=== PATIENT | female | born 1985 | race Caucasian/White ===

== ENCOUNTER 2016-04-16 14:40 | Emergency (ER) | payer OTHER ==
[2016-04-16 14:50] VITALS: BP 155/83; PULSE 94; RESP 20; TEMP 97.5
[2016-04-16] MEDS ORDERED: SODIUM CHLORIDE 0.9% 1,000 ML IV STA (16:09)
[2016-04-16] MEDS ORDERED: RX INFO: IV CONTRAST WAS GIVEN 1 EACH MISC MISCELLANE PRN (16:10)
--- NOTE | 2016-04-16 17:19 | ED ---
General Adult HPI - General Chief complaint: Eye Problems Stated complaint: Vision Problems Time Seen by Provider: 04/16/16 15:35 Source: patient, RN notes reviewed, old records reviewed Mode of arrival: ambulatory Limitations: no limitations - History of Present Illness Initial comments: This is a 30-year-old female here for evaluation. This patient presents for evaluation of blurry vision. Her vision seems isolated the left eye. Patient has decreased blurry vision if she does have just her right eye, vision is normal. Both eyes mild blurry vision left eye she does have blurry vision. Patient also complaining of headache. Medical history significant for polycystic ovarian syndrome, otherwise medical history is been well, no history of diabetes. No recent trauma - Related Data Home Medications Medication Instructions Recorded Confirmed Sertraline HCl [Zoloft] 150 mg PO HS 06/24/13 04/16/16 buPROPion XL [Wellbutrin XL] 300 mg PO W/LUNCH 04/27/15 04/16/16 Calcium Polycarbophil [Fibercon] 625 mg PO Q7D PRN 04/16/16 04/16/16 Ibuprofen [Motrin] 200 - 400 mg PO Q6HR PRN 04/16/16 04/16/16 Previous Rx's Medication Instructions Recorded Omeprazole [PriLOSEC] 20 mg PO AC-BRKFST 14 Days 09/27/14 Allergies Allergy/AdvReac Type Severity Reaction Status Date / Time No Known Allergies Allergy Verified 04/16/16 15:47 Review of Systems ROS Statement: Those systems with pertinent positive or pertinent negative responses have been documented in the HPI. ROS Other: All systems not noted in ROS Statement are negative. Past Medical History Past Medical History: GERD/Reflux Additional Past Medical History / Comment(s): POLYCYSTIC OVARIAN SYNDROME, migraines, hiatal hernia, frequent bowel movements, torn ligament rt ankle History of Any Multi-Drug Resistant Organisms: None Reported Past Surgical History: Appendectomy Additional Past Surgical History / Comment(s): OVARIAN CYST SURGERY X2 Past Anesthesia/Blood Transfusion Reactions: No Reported Reaction Additional Past Anesthesia/Blood Transfusion Reaction / Comment(s): VERY DIFFICULT IV START Past Psychological History: Depression, PTSD Smoking Status: Never smoker Past Alcohol Use History: None Reported Past Drug Use History: None Reported - Past Family History Sister(s) Family Medical History: Blood Disorder Additional Family Medical History / Comment(s): clotting disorder Mother Family Medical History: Deep Vein Thrombosis (DVT) Additional Family Medical History / Comment(s): DVT RT KNEE General Exam - General Exam Comments Initial Comments: Extraocular motion seems to be intact, patient's eye left is not down and out, both eyes a straight no deviation in regular gaze Limitations: no limitations General appearance: alert, in no apparent distress Head exam: Present: atraumatic, normocephalic, normal inspection Eye exam: Present: normal appearance, PERRL, EOMI. Absent: scleral icterus, conjunctival injection, periorbital swelling ENT exam: Present: normal exam, mucous membranes moist Neck exam: Present: normal inspection. Absent: tenderness, meningismus, lymphadenopathy Respiratory exam: Present: normal lung sounds bilaterally. Absent: respiratory distress, wheezes, rales, rhonchi, stridor Cardiovascular Exam: Present: regular rate, normal rhythm, normal heart sounds. Absent: systolic murmur, diastolic murmur, rubs, gallop, clicks GI/Abdominal exam: Present: soft, normal bowel sounds. Absent: distended, tenderness, guarding, rebound, rigid Extremities exam: Present: normal inspection, full ROM, normal capillary refill. Absent: tenderness, pedal edema, joint swelling, calf tenderness Back exam: Present: normal inspection Neurological exam: Present: alert, oriented X3, CN II-XII intact Psychiatric exam: Present: normal affect, normal mood Skin exam: Present: warm, dry, intact, normal color. Absent: rash Course Vital Signs 04/16/16 14:47 Temperature 97.5 F L Pulse Rate 94 Respiratory 20 Rate Blood Pressure 155/83 O2 Sat by Pulse 98 Oximetry - Reevaluation(s) Reevaluation #1: 04/16/16 19:16 Discussed at length. greater than 15 minutes regarding patient's diagnosis prognosis, patient will follow up with ophthalmology this week EKG Findings - EKG Comments: EKG Findings:: EKG shows no sinus rhythm rate of 80, NC 170, QRS 90, QTc 461 Medical Decision Making - Medical Decision Making 30 female the ER for evaluation. This patient presents today for evaluation of left eye blurry vision, will follow up with ophthalmology CT at this point is negative. Patient can be discharged home - Lab Data Result diagrams: 04/16/16 17:05 04/16/16 17:05 Lab Results 04/16/16 04/16/16 04/16/16 Range/Units 17:05 17:05 17:05 WBC 7.1 (3.8-10.6) k/uL RBC 5.02 (3.80-5.40) m/uL Hgb 13.7 (11.4-16.0) gm/dL Hct 42.2 (34.0-46.0) % MCV 84.0 (80.0-100.0) fL MCH 27.4 (25.0-35.0) pg MCHC 32.6 (31.0-37.0) g/dL RDW 14.2 (11.5-15.5) % Plt Count 244 (150-450) k/uL Neutrophils % 66 % Lymphocytes % 25 % Monocytes % 4 % Eosinophils % 1 % Basophils % 1 % Neutrophils # 4.7 (1.3-7.7) k/uL Lymphocytes # 1.8 (1.0-4.8) k/uL Monocytes # 0.3 (0-1.0) k/uL Eosinophils # 0.1 (0-0.7) k/uL Basophils # 0.1 (0-0.2) k/uL PT (9.0-12.0) sec INR (<1.1) APTT (22.0-30.0) sec Sodium 140 (137-145) mmol/L Potassium 4.7 (3.5-5.1) mmol/L Chloride 102 (98-107) mmol/L Carbon Dioxide 26 (22-30) mmol/L Anion Gap 12 mmol/L BUN 11 (7-17) mg/dL Creatinine 0.76 (0.52-1.04) mg/dL Est GFR (MDRD) Af Amer >60 (>60 ml/min/1.73 sqM) Est GFR (MDRD) Non-Af >60 (>60 ml/min/1.73 sqM) Glucose 92 (74-99) mg/dL Calcium 9.7 (8.4-10.2) mg/dL Phosphorus 4.1 (2.5-4.5) mg/dL Magnesium 2.0 (1.6-2.3) mg/dL Total Bilirubin 0.6 (0.2-1.3) mg/dL AST 32 (14-36) U/L ALT 42 (9-52) U/L Alkaline Phosphatase 105 (38-126) U/L Total Creatine Kinase 92 (30-135) U/L CK-MB (CK-2) 0.5 (0.0-2.4) ng/mL CK-MB (CK-2) Rel Index 0.5 Troponin I <0.012 (0.000-0.034) ng/mL Total Protein 8.3 H (6.3-8.2) g/dL Albumin 4.5 (3.5-5.0) g/dL TSH 2.790 (0.465-4.680) mIU/L Urine Color Urine Appearance (Clear) Urine pH (5.0-8.0) Ur Specific Jacob (1.001-1.035) Urine Protein (Negative) Urine Glucose (UA) (Negative) Urine Ketones (Negative) Urine Blood (Negative) Urine Nitrate (Negative) Urine Bilirubin (Negative) Urine Urobilinogen (<2.0) mg/dL Ur Leukocyte Esterase (Negative) Urine RBC (0-5) /hpf Urine WBC (0-5) /hpf Ur Squamous Epith Cells (0-4) /hpf Urine Bacteria (None) /hpf Urine Mucus (None) /hpf 04/16/16 04/16/16 Range/Units 17:05 17:05 WBC (3.8-10.6) k/uL RBC (3.80-5.40) m/uL Hgb (11.4-16.0) gm/dL Hct (34.0-46.0) % MCV (80.0-100.0) fL MCH (25.0-35.0) pg MCHC (31.0-37.0) g/dL RDW (11.5-15.5) % Plt Count (150-450) k/uL Neutrophils % % Lymphocytes % % Monocytes % % Eosinophils % % Basophils % % Neutrophils # (1.3-7.7) k/uL Lymphocytes # (1.0-4.8) k/uL Monocytes # (0-1.0) k/uL Eosinophils # (0-0.7) k/uL Basophils # (0-0.2) k/uL PT 10.3 (9.0-12.0) sec INR 1.0 (<1.1) APTT 34.4 H (22.0-30.0) sec Sodium (137-145) mmol/L Potassium (3.5-5.1) mmol/L Chloride (98-107) mmol/L Carbon Dioxide (22-30) mmol/L Anion Gap mmol/L BUN (7-17) mg/dL Creatinine (0.52-1.04) mg/dL Est GFR (MDRD) Af Amer (>60 ml/min/1.73 sqM) Est GFR (MDRD) Non-Af (>60 ml/min/1.73 sqM) Glucose (74-99) mg/dL Calcium (8.4-10.2) mg/dL Phosphorus (2.5-4.5) mg/dL Magnesium (1.6-2.3) mg/dL Total Bilirubin (0.2-1.3) mg/dL AST (14-36) U/L ALT (9-52) U/L Alkaline Phosphatase (38-126) U/L Total Creatine Kinase (30-135) U/L CK-MB (CK-2) (0.0-2.4) ng/mL CK-MB (CK-2) Rel Index Troponin I (0.000-0.034) ng/mL Total Protein (6.3-8.2) g/dL Albumin (3.5-5.0) g/dL TSH (0.465-4.680) mIU/L Urine Color Yellow Urine Appearance Cloudy H (Clear) Urine pH 5.5 (5.0-8.0) Ur Specific Jacob 1.019 (1.001-1.035) Urine Protein Negative (Negative) Urine Glucose (UA) Negative (Negative) Urine Ketones Negative (Negative) Urine Blood Negative (Negative) Urine Nitrate Negative (Negative) Urine Bilirubin Negative (Negative) Urine Urobilinogen <2.0 (<2.0) mg/dL Ur Leukocyte Esterase Negative (Negative) Urine RBC 2 (0-5) /hpf Urine WBC 1 (0-5) /hpf Ur Squamous Epith Cells 4 (0-4) /hpf Urine Bacteria Rare H (None) /hpf Urine Mucus Rare H (None) /hpf - Radiology Data Radiology results: report reviewed (CT head neck is negative for acute disease) , image reviewed Disposition Clinical Impression: Monocular diplopia of left eye Disposition: HOME SELF-CARE Condition: Good Instructions: Diplopia (ED) Referrals: Naeem Zazueta MD [STAFF PHYSICIAN] - 1-2 days
[2016-04-16 17:20] LABS: Basophils # (A) 0.1 k/uL (0-0.2); Basophils % (A) 1 %; CH 27.3; CHCM 32.6; Eosinophils # (A) 0.1 k/uL (0-0.7); Eosinophils % (A) 1 %; HCT 42.2 % (34.0-46.0); HDW 2.76; HGB 13.7 gm/dL (11.4-16.0); Luc # (Auto) 0.18; Luc % (Auto) 3; Lymphocytes # (A) 1.8 k/uL (1.0-4.8); Lymphocytes % (A) 25 %; MCH 27.4 pg (25.0-35.0); MCHC 32.6 g/dL (31.0-37.0); Mean Platelet Volume 7.7; Monocytes # (A) 0.3 k/uL (0-1.0); Monocytes % (A) 4 %; Neutrophils # (A) 4.7 k/uL (1.3-7.7); Neutrophils % (A) 66 %; RBC 5.02 m/uL (3.80-5.40); RDW 14.2 % (11.5-15.5); WBC 7.1 k/uL (3.8-10.6); WBC (Perox) 7.05
[2016-04-16 17:24] LABS: Appearance,Urine Cloudy (Clear); Bacteria,Urine Rare /hpf; Bilirubin,Urine Negative (Negative); Glucose,Urine (UA) Negative (Negative); Ketones,Urine Negative (Negative); Leukocyte Esterase,Urine Negative (Negative); Mucus,Urine Rare /hpf; Nitrite,Urine Negative (Negative); PH, Urine 5.5 (5.0-8.0); Particle Count 6590; Protein,Urine Negative (Negative); RBC,Urine 2 /hpf (0-5); Specific Gravity,Urine 1.019 (1.001-1.035); Squamous Epithelial Cell,Urine 4 /hpf (0-4); UA Billing (MACRO vs. MICRO) MICRO; Urobilinogen,Urine <2.0 mg/dL (<2.0); WBC,Urine 1 /hpf (0-5)
[2016-04-16 17:29] LABS: ALT 42 U/L (9-52); AST 32 U/L (14-36); Alkaline Phosphatase 105 U/L (38-126); Anion Gap 12 mmol/L; Blood Urea Nitrogen 11 mg/dL (7-17); Calcium 9.7 mg/dL (8.4-10.2); Carbon Dioxide 26 mmol/L (22-30); Chloride 102 mmol/L (98-107); Glucose 92 mg/dL (74-99); Non-African American GFR(MDRD) >60 (>60 ml/min/1.73 sqM); Partial Thromboplastin Time 34.4 sec (22.0-30.0); Phosphorous 4.1 mg/dL (2.5-4.5); Potassium 4.7 mmol/L (3.5-5.1); Prothrombin Time 10.3 sec (9.0-12.0); Sodium 140 mmol/L (137-145); Total Bilirubin 0.6 mg/dL (0.2-1.3); Total Protein 8.3 g/dL (6.3-8.2)
[2016-04-16 17:35] LABS: Creatine Kinase 92 U/L (30-135)
[2016-04-16 17:48] LABS: Creatine Kinase MB 0.5 ng/mL (0.0-2.4); Troponin I <0.012 ng/mL (0.000-0.034)
--- NOTE | 2016-04-16 18:58 | CT ---
EXAMINATION TYPE: CT angio head neck DATE OF EXAM: 04/16/2016 6:51 PM COMPARISON: NONE HISTORY: Left eye double vision. CT DLP: 598.00 mGycm Automated exposure control for dose reduction was used. TECHNIQUE: Performed with IV Contrast, patient injected with 65 mL of Omnipaque 350. There are 3-D post processed images.. FINDINGS: There is normal branching pattern of the great vessels on the aortic arch. There is arterial flow in the common internal and external carotid arteries bilaterally. There is no evidence of stenosis. Ther e is bilateral patency of the jugular veins. There is bilateral patency of the vertebral arteries. There is arterial flow in the vertebrobasilar artery system. There is arterial flow in the anterior m iddle and posterior cerebral arteries. There is no evidence of aneurysm or neovascularity. There is n o mass effect. There is no evidence of stenosis. There is normal contrast density in the venous sinus es. IMPRESSION: NEGATIVE CT ANGIOGRAM OF THE NECK. NEGATIVE CT ANGIOGRAM OF THE BRAIN.
[2016-04-16 20:11] LABS: Hemoglobin A1C 5.6 % (4.2-6.1)
== END 2016-04-16 19:38 | disposition home or self-care (01) ==
LOC: EC 14:40
DX: H53.2 Diplopia (principal); R51 Headache; F32.9 Major depressive disorder, single episode, unspecified; F43.10 Post-traumatic stress disorder, unspecified
CPT/HCPCS: 36415; 93005; 80053; 83036; 82550; 82553; 83735; 84100; 84443; 84484; 85025; 85610; 85730; 81001; 87086; 70496; 70498; 99284; 96360; 96361; Q9967

== ENCOUNTER → 2016-05-16 | Outpatient (CLI) | payer OTHER ==
[2016-05-16 11:06] LABS: Cholesterol 202 mg/dL (<200); HDL Cholesterol 41 mg/dL (40-60); Triglycerides 178 mg/dL (<150)
[2016-05-16 22:13] LABS: Hemoglobin A1C 5.4 % (4.2-6.1)
== END ==
LOC: LABWHC1 10:01
PROVIDERS: ATTEND Internal Medicine
DX: H53.2 Diplopia (principal)
CPT/HCPCS: 36415; 80061; 83036; 83519

== ENCOUNTER 2018-08-30 19:04 | Emergency (ER) | payer OTHER ==
[2018-08-30 19:26] VITALS: BP 129/81; PULSE 88; RESP 18; TEMP 98.1
--- NOTE | 2018-08-30 20:13 | XR ---
EXAMINATION TYPE: XR wrist complete RT, XR hand complete RT DATE OF EXAM: 08/30/2018 CLINICAL HISTORY: Fall injury with pain. TECHNIQUE: Frontal, lateral and oblique images of the right hand and wrist are obtained. COMPARISON: None FINDINGS: There is no acute fracture/dislocation evident in the right wrist. The joint spaces in th e right wrist appear within normal limits. The overlying soft tissue appears unremarkable. Images of the right hand show incomplete extension of the phalanges. There is no acute fracture or di slocation seen. The joint spaces are preserved. Overlying soft tissue is unremarkable. IMPRESSION: There is no acute fracture or dislocation in the right hand or wrist.
--- NOTE | 2018-08-30 20:14 | ED ---
General Adult HPI - General Chief complaint: Extremity Injury, Upper Stated complaint: Fell-Rt hand injury Time Seen by Provider: 08/30/18 19:27 Source: patient, RN notes reviewed Mode of arrival: ambulatory Limitations: no limitations - History of Present Illness Initial comments: 33-year-old female presents to the emergency department for a chief complaint of right hand pain. Patient states she was trying to take down a canopy when he caught the wind and she fell on her right hand. Patient states she has pain moving her right digit that extends into her right hand along the medial aspect. Patient states straightening the finger makes this worse as well as movement. States it feels better bed. Denies any other injuries.Patient has no other complaints at this time including shortness of breath, chest pain, abdominal pain, nausea or vomiting, headache, or visual changes. - Related Data Home Medications Medication Instructions Recorded Confirmed Sertraline HCl [Zoloft] 150 mg PO HS 06/24/13 04/16/16 buPROPion XL [Wellbutrin XL] 300 mg PO W/LUNCH 04/27/15 04/16/16 Calcium Polycarbophil [Fibercon] 625 mg PO Q7D PRN 04/16/16 04/16/16 Ibuprofen [Motrin] 200 - 400 mg PO Q6HR PRN 04/16/16 04/16/16 Previous Rx's Medication Instructions Recorded Omeprazole [PriLOSEC] 20 mg PO AC-BRKFST 14 Days cap 09/27/14 Allergies Allergy/AdvReac Type Severity Reaction Status Date / Time No Known Allergies Allergy Verified 08/30/18 19:24 Review of Systems ROS Statement: Those systems with pertinent positive or pertinent negative responses have been documented in the HPI. ROS Other: All systems not noted in ROS Statement are negative. Past Medical History Past Medical History: GERD/Reflux Additional Past Medical History / Comment(s): POLYCYSTIC OVARIAN SYNDROME, migraines, hiatal hernia, frequent bowel movements, torn ligament rt ankle History of Any Multi-Drug Resistant Organisms: None Reported Past Surgical History: Appendectomy Additional Past Surgical History / Comment(s): OVARIAN CYST SURGERY X2 Past Anesthesia/Blood Transfusion Reactions: No Reported Reaction Additional Past Anesthesia/Blood Transfusion Reaction / Comment(s): VERY DIFFICULT IV START Past Psychological History: Depression, PTSD Smoking Status: Never smoker Past Alcohol Use History: None Reported Past Drug Use History: None Reported - Past Family History Sister(s) Family Medical History: Blood Disorder Additional Family Medical History / Comment(s): clotting disorder Mother Family Medical History: Deep Vein Thrombosis (DVT) Additional Family Medical History / Comment(s): DVT RT KNEE General Exam Limitations: no limitations General appearance: alert, in no apparent distress Head exam: Present: atraumatic, normocephalic, normal inspection Eye exam: Present: normal appearance, PERRL, EOMI. Absent: scleral icterus, conjunctival injection, periorbital swelling ENT exam: Present: normal exam, mucous membranes moist Neck exam: Present: normal inspection. Absent: tenderness, meningismus, lymphadenopathy Respiratory exam: Present: normal lung sounds bilaterally. Absent: respiratory distress, wheezes, rales, rhonchi, stridor Cardiovascular Exam: Present: regular rate, normal rhythm, normal heart sounds. Absent: systolic murmur, diastolic murmur, rubs, gallop, clicks Extremities exam: Present: tenderness (Tenderness noted throughout the right fifth digit as well as the fifth metacarpal.), normal capillary refill (Capillary refill less than 2 seconds, radial pulse 2+ in the right upper extremity.). Absent: full ROM (Patient has very limited flexion and extension of the right fifth digit.), joint swelling (No significant edema or ecchymosis.) Neurological exam: Present: alert, oriented X3, CN II-XII intact Psychiatric exam: Present: normal affect, normal mood Course Vital Signs 08/30/18 19:21 Temperature 98.1 F Pulse Rate 88 Respiratory 18 Rate Blood Pressure 129/81 O2 Sat by Pulse 99 Oximetry Procedures - Orthopedic Splinting/Casting Injury #1 Side: right Upper Extremity Injury Location: short arm Upper Extremity Immobilizer: volar splint Additional Comments: Neurovascular status intact after splint applied Medical Decision Making - Medical Decision Making 33 year old female presents to the emergency department for chief complaint of right hand pain. This has been ongoing for about one hour after patient fell onto her right hand. No other injuries. She did not hit her head. Patient has tenderness throughout the fifth digit as well as fifth metacarpal of the right hand. Limited range of motion of the fifth digit. Neurovascular status intact in the right upper extremity. X-ray of the right wrist shows no acute fracture or dislocation. No acute fracture or dislocation in the right hand. There is incomplete extension. However given the patient's degree of pain and limited range of motion she will be splinted. I did attempt to splint patient in an ulnar gutter splint but she could not tolerate this positioning. Patient then was splinted in a volar wrist splint which she did tolerate. Patient will follow-up with orthopedics. She will return here if she has any worsening symptoms. Disposition Clinical Impression: Hand pain, right Disposition: HOME SELF-CARE Condition: Good Instructions (If sedation given, give patient instructions): Hand Sprain (ED) Additional Instructions: Please take Motrin and Tylenol for pain. Please rest ice and elevate the right hand. Keep splint dry. Follow-up with orthopedics in one to 2 days. Return to the emergency department if you have any worsening symptoms Is patient prescribed a controlled substance at d/c from ED?: No Referrals: Nonstaff,Physician [Primary Care Provider] - 1-2 days Radha Negron DO [Doctor of Osteopathic Medicine] - 1-2 days Time of Disposition: 20:14
[2018-08-30] MEDS ORDERED: HYDROcodone/APAP 5-325MG 1 EACH TAB PO STA (20:24)
== END 2018-08-30 20:40 | disposition home or self-care (01) ==
LOC: EC 19:04
DX: M79.641 Pain in right hand (principal); F32.9 Major depressive disorder, single episode, unspecified; Z79.899 Other long term (current) drug therapy
CPT/HCPCS: 29125; 99283